=== PATIENT | female | born 1970 | race Caucasian/White ===

== ENCOUNTER 2023-02-25 08:37 | Emergency (ER) | payer OTHER ==
[~2023-02-25] VITALS: Ht 160 cm; Wt 64.9 kg
[2023-02-25] MEDS ORDERED: PROG100 (09:00)
[2023-02-25] MEDS ORDERED: ESTRADIOL1 EAC2 TOP (09:01)
[2023-02-25] MEDS ORDERED: ANDRODERM1 EAC3 TD (09:01)
[2023-02-25] MEDS ORDERED: MERIBIN5 MG PO (09:01)
[2023-02-25] MEDS ORDERED: ROSU10TA PO (09:01)
[2023-02-25] MEDS ORDERED: ZINC15 PO (09:02)
[2023-02-25] MEDS ORDERED: UNISOM SIMPLE2.5 MG PO (09:02)
[2023-02-25] MEDS ORDERED: Vitamin D1000 UNI1 (09:02)
[2023-02-25 10:25] LABS: Calcium, Ionized (POC) 1.16 mmol/L (1.10-1.46); Chloride (POC) 106 mmol/L (98-108); Creatinine (POC) 0.7 mg/dL (0.6-1.0); Glucose (ISTAT POC) 99 mg/dL (70-99); Hemoglobin (POC) 15.6 g/dL (12.0-16.0); Potassium (POC) 3.9 mmol/L (3.5-5.5); Sodium (POC) 140 mmol/L (135-148); Total CO2 (POC) 23 mmol/L (21-32)
[2023-02-25 10:28] VITALS: BP 1160/60
== END 2023-02-25 10:31 | disposition home or self-care (01) ==
LOC: ER 08:37
PROVIDERS: Physician Assistant
DX: R25.2 Cramp and spasm (principal); Z88.0 Allergy status to penicillin; Z79.899 Other long term (current) drug therapy
CPT/HCPCS: 80047; 85014; 93971; 99284-25